=== PATIENT | male | born 1945 | race Caucasian/White ===

== ENCOUNTER 2021-06-17 07:53 | Day surgery (SDC) | payer MEDICARE, MEDICAID ==
[2021-06-17 08:46] VITALS: BP 115/61; BMI 23.6
[2021-06-17] MEDS ORDERED: Lidocaine 1% PF 5 ML VIAL ONE (09:18)
[2021-06-17] MEDS ORDERED: PROPOFOL 20 ML ONE (09:18)
== END 2021-06-17 11:05 | disposition home or self-care (01) ==
LOC: CSHSDC 07:53
PROVIDERS: ATTEND Specialist
DX: I48.11 Longstanding persistent atrial fibrillation (principal); Z95.0 Presence of cardiac pacemaker; I25.10 Atherosclerotic heart disease of native coronary artery without angina pectoris; E78.2 Mixed hyperlipidemia; Z87.891 Personal history of nicotine dependence; Z79.899 Other long term (current) drug therapy; Z79.82 Long term (current) use of aspirin; Z79.84 Long term (current) use of oral hypoglycemic drugs; I25.5 Ischemic cardiomyopathy; I70.1 Atherosclerosis of renal artery
CPT/HCPCS: 92960; 93005; 93010; 93312; J2704